=== PATIENT | female | born 1955 | race Caucasian/White ===

== ENCOUNTER 2018-01-10 07:09 | Outpatient (CLI) | payer OTHER, SELFPAY ==
[2018-01-10 08:39] LABS: Cholesterol 153 mg/dL (50-200); Glucose 101 mg/dL (70-100); HDL Cholesterol 65 mg/dL (40-60); LDL CHOLESTEROL 80 mg/dL (<100); TSH 2.84 uIU/mL (0.358-3.74); Triglyceride 133 mg/dL (30-150)
== END 2018-01-10 07:29 ==
PROVIDERS: PCP Nurse Practitioner Family; Visit Provider Nurse Practitioner Family
DX: Z00.00 Encounter for general adult medical examination without abnormal findings (principal); F41.8 Other specified anxiety disorders; E66.9 Obesity, unspecified
CPT/HCPCS: 36415; 80061; 82947; 83721; 84443

== ENCOUNTER 2019-09-07 03:44 | Outpatient (CLI) | payer OTHER, SELFPAY ==
--- NOTE | 2019-09-07 15:47 | DI.RAD_ITS ---
EXAM: XR HIP LT COMPLETE AP PELVIS INDICATION: DEGENERATIVE JOINT DISEASE,OA.M19.90, LT SCIATICA. COMPARISON: CR from 12/22/2010 CR from 12/22/2010 TECHNIQUE: 2D digital imaging was performed. FINDINGS: There is a right hip prosthesis, not present on the previous examination. There has been interval pr ogression of degenerative changes in the left hip. There is now sever narrowing of the superior hip joint space, periarticular spurring and subchondral cyst formation. The SI joints are unremarkable. Severe degenerative changes are seen in the lower lumbar spine. IMPRESSION: Severe degenerative changes of the left hip. DATA REPOSITORY: RADIATION DOSE DELIVERED:
--- NOTE | 2019-09-07 15:48 | DI.RAD_ITS ---
EXAM: XR LUMBAR SPINE COMPLETE CLINICAL HISTORY: LT SCIATICA, M54.32, BACK PAIN. TECHNIQUE: 2D digital imaging was performed. COMPARISON: CR RIGHT HIP COMPLETE from 12/22/2010 FINDINGS: BONES: No fracture or destructive lesion. Vertebral bodies are maintained in height. DISKS: There is sever narrowing of the T11-12 disc space with periarticular spurring. The T12-L1 thr ough L3-L4 disk spaces are well maintained. At L4-5, there is severe narrowing, endplate osteophytes and sclerosis. There is moderate narrowing of the L5-S1 disc space. Facet degenerative changes are seen greatest at L4-5 and L5-S1. ALIGNMENT: There is a mild levoscoliosis secondary to asymmetric narrowing of the L4-5 disc space on the right. SOFT TISSUE: Normal bowel gas pattern. IMPRESSION: Degenerative disk changes, greatest at L4-5. DATA REPOSITORY: RADIATION DOSE DELIVERED:
== END 2019-09-07 04:04 ==
PROVIDERS: PCP Nurse Practitioner Family; Visit Provider Nurse Practitioner
DX: M54.42 Lumbago with sciatica, left side (principal); M16.12 Unilateral primary osteoarthritis, left hip; Z96.641 Presence of right artificial hip joint; M51.17 Intervertebral disc disorders with radiculopathy, lumbosacral region
CPT/HCPCS: 72110; 73502

== ENCOUNTER 2019-09-10 02:14 | Outpatient (CLI) | payer OTHER, SELFPAY ==
[2019-09-10 07:24] LABS: HCT 42.1 % (36.0-46.0); HGB 13.6 g/dL (12.0-15.5); Mean Corp. HGB Concentration 32.3 g/dL (32.0-36.0); Mean Corpuscular Hemoglobin 26.7 pg (27.0-33.0); Mean Corpuscular Volume 82.7 fL (80-95); Mean Platelet Volume 10.5 fL (8.0-11.0); Platelet Count 275 x1000/uL (130-400); RBC 5.09 m/cumm (4.00-5.20); RBC Distribution Width 15.2 % (11.7-14.6); White Blood Cell Count 6.44 k/cumm (4.4-10.8)
[2019-09-10 08:24] LABS: ALT 26 U/L (14-59); AST 19 U/L (15-37); Albumin 3.4 g/dL (3.4-5.0); Alkaline Phosphatase 77 U/L (46-116); Anion Gap 9.3 mmol/L (3-11); BUN 12 mg/dL (7-18); Bilirubin, Total 0.4 mg/dL (0.2-1.0); CO2 25.7 mmol/L (21.0-32.0); CREATININE 0.87 mg/dL (0.55-1.02); Calcium 8.5 mg/dL (8.5-10.1); Chloride 104 mmol/L (98-107); Glucose 100 mg/dL (74-106); Potassium 4.6 mmol/L (3.5-5.1); Sodium 139 mmol/L (136-145); TSH (W/Ref FT4) 2.48 uIU/mL (0.36-3.74); Total Protein 6.7 g/dL (6.4-8.2)
[2019-09-10 11:36] LABS: Calculated LDL 72 mg/dL (<100); Cholesterol 160 mg/dL (<200); HDL Cholesterol 64 mg/dL (40-60); Triglyceride 124 mg/dL (<150); Vitamin B12 335 pg/mL (193-986)
== END 2019-09-10 02:34 ==
PROVIDERS: PCP Nurse Practitioner Family; Visit Provider Nurse Practitioner
DX: E55.9 Vitamin D deficiency, unspecified (principal); R53.83 Other fatigue; Z13.220 Encounter for screening for lipoid disorders
CPT/HCPCS: 36415; 80053; 80061; 82306; 85027; 82607; 84443

== ENCOUNTER 2019-12-07 11:09 | Outpatient (CLI) | payer OTHER, SELFPAY ==
--- NOTE | 2019-12-07 11:00 | DI.RAD_ITS ---
EXAM: XR PELVIS AP INDICATION: left hip DJD. COMPARISON: CR XR HIP LT COMPLETE AP PELVIS from 09/07/2019 TECHNIQUE: 2D digital imaging was performed. FINDINGS: A right hip prosthesis is again noted. There are again noted to be severe degenerative changes of th e superior left hip joint space. There is acetabular spurring and spurring from the femoral head. DATA REPOSITORY: RADIATION DOSE DELIVERED:
== END 2019-12-07 11:29 ==
PROVIDERS: PCP Nurse Practitioner; Referring Provider Nurse Practitioner; Visit Provider Physician Assistant
DX: M16.12 Unilateral primary osteoarthritis, left hip (principal); Z96.641 Presence of right artificial hip joint
CPT/HCPCS: 72170

== ENCOUNTER 2020-01-11 02:15 | Outpatient (CLI) | payer OTHER, SELFPAY ==
[2020-01-11 10:16] LABS: HCT 41.5 % (36.0-46.0); HGB 13.2 g/dL (11.2-15.7); MCH 27.1 pg (27.0-33.0); MCHC 31.8 % (32.0-36.0); MCV 85.2 fL (80-95); MPV 10.1 fL (8.0-11.0); Platelet Count 232 10^3/uL (130-400); RBC 4.87 10^6/uL (3.93-5.22); RDW 14.8 % (11.7-14.6); RDW-SD 46.4 fL; WBC 5.83 10^3/uL (4.4-10.8)
[2020-01-11 11:17] LABS: Anion Gap 8.6 mmol/L (3-11); BUN 13 mg/dL (7-18); CO2 27.4 mmol/L (21.0-32.0); CREATININE 0.78 mg/dL (0.55-1.02); Calcium 8.7 mg/dL (8.5-10.1); Chloride 104 mmol/L (98-107); Glucose 97 mg/dL (74-106); Potassium 4.4 mmol/L (3.5-5.1); Sodium 140 mmol/L (136-145)
[2020-01-12 14:58] LABS: COVID-19 RT-PCR Result NEGATIVE (Negative)
== END 2020-01-11 02:35 ==
PROVIDERS: PCP Nurse Practitioner; Visit Provider Student in an Organized Health Care Education/Training Program
DX: M16.12 Unilateral primary osteoarthritis, left hip (principal); Z01.818 Encounter for other preprocedural examination; Z11.59 Encounter for screening for other viral diseases; Z67.10 Type A blood, Rh positive
CPT/HCPCS: 80048; 85027; 86850; 86900; 86901; U0003

== ENCOUNTER 2020-01-16 07:37 | Observation (INO) | payer OTHER, SELFPAY ==
[2020-01-16] VITALS (9 sets, daily range): BP systolic 108–136; BP diastolic 47–105; PULSE 62–86; RESP 12–18; TEMP 36.1–36.7; O2SAT 96–99
[2020-01-16] MEDS: Lactated Ringers 1,000 ML 80 ML IV (08:02)
[2020-01-16] MEDS: Celecoxib 200 MG CAP 400 MG PO (08:02)
[2020-01-16] MEDS: Acetaminophen 500 MG TAB 1000 MG PO ×2 (08:02→16:06)
--- NOTE | 2020-01-16 10:30 | DI.RAD_ITS ---
EXAM: XR HIP LT IN OR CLINICAL HISTORY: OSTEOARTHRITIS LEFT HIP. TECHNIQUE: 2D and realtime digital imaging was performed. COMPARISON: No exams were available for comparison FINDINGS: Fluoroscopy was provided in the OR for Dr. Carr. Hard copy images show placement of a left hip prosthesis. Please see procedure note for details. Fluoro time: 35.2 seconds RADIATION DOSE DELIVERED:
[2020-01-16] MEDS: ceFAZolin 3,000 MG in Normal Saline 100 ML 200 MG IVPB (12:02)
[2020-01-16] MEDS: Bupivacaine 0.25% Pres-Free 30 ML VIAL (13:33)
[2020-01-16] MEDS: Ketorolac 30 MG/ML VIAL (13:33)
--- NOTE | 2020-01-16 15:19 | PT.INIE ---
Date of service: 01/16/20 Time of Service: 15:19 PT Notes Visit Reasons: TOTAL HIP Physical Therapy Inpatient Initial Evaluation Date: 01/16/2020 Referring Doctor: SANTIAGO Johnson PT Orders: PT CONSULT: Status post Ortho surgery Precautions: Fall. Standard. WBAT on left LE. Patient Profile/Admitting Diagnosis: Adilene is a 64-year-old female with primary unilateral osteoarthritis of the left hip and is status post left total hip arthroplasty on postoperative day 0. PMHX: Surgical History (Updated 01/11/20 @ 18:20 by SANTIAGO Werner) H/O tubal ligation History of total right hip replacement (07/27/11) [facility] Social History/Home Situation: Lives with in a private home with 2 steps to enter with a rail on 1 side. Daughter will be home as well to help take care of her mother as she recovers. 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 Independent with all aspects of ADLs prior to surgery. Equipment Owned/DME: Has front wheeled walker that has been adjusted properly to her height today. Subjective: Reports some mild burning sensation in the left hip at rest that subsided with activity. Hopeful to be going home today if safe to do so. Reported mild lightheadedness that she has not had anything to eat since last night. Objective: General Observation: Supine in bed. IV in the right UE. TEDS on B legs. Antithromboembolic devices on both legs. Mepilex Ag over surgical incision. Mental Status: Alert and oriented x4 Pain: 1/10 in the left hip at rest and 3/10 with ambulation Vital signs: Within normal limits as by nurse [place] immediately prior to PT visit ROM: Right Upper Extremity: Shoulder Flexion WFL. Shoulder abduction WFL. Elbow flexion WFL. Wrist flexion WFL. Opening and closing of hand WFL. Left Upper Extremity: Shoulder Flexion WFL. Shoulder abduction WFL. Elbow flexion WFL. Wrist flexion WFL. Opening and closing of hand WFL. Right Lower Extremity: Hip flexion WFL. Hip abduction WFL. Knee flexion WFL. Ankle dorsiflexion WFL. Ankle plantarflexion WFL. Left Lower Extremity: Hip flexion WFL. Hip abduction WFL. Knee flexion WFL. Ankle dorsiflexion WFL. Ankle plantarflexion WFL. Strength: Right Upper Extremity: Shoulder flexors 5/5. Shoulder abductors 5/5. Elbow flexors 5/5. Elbow extensors 5/5. Pediatric Physician Assistant strong. Left Upper Extremity: Shoulder flexors 5/5. Shoulder abductors 5/5. Elbow flexors 5/5. Elbow extensors 5/5. Pediatric Physician Assistant strong. Right Lower Extremity: Hip flexors 5/5. Hip abductors 5/5. Knee flexors 5/5. Knee extensors 5/5. Ankle dorsiflexors 5/5. Ankle plantarflexors 5/5. Left Lower Extremity:Hip flexors 4/5. Hip abductors 4/5. Knee flexors 4/5. Knee extensors 4/5. Ankle dorsiflexors 5/5. Ankle plantarflexors 5/5. Sensation: Intact as to pain and pressure on bilateral lower extremities. Bed Mobility/Transfers: Supine to sit contact-guard assist Sit to stand contact-guard assist Stand to sit contact-guard assist Bed to chair contact-guard assist Chair to bed contact-guard assist Gait: Adilene tolerated 120 feet x 2 level surface ambulation using front wheeled walker with contact-guard assist and step through gait pattern. Decreased xuan. Reported mild burning sensation and in the left hip that subsided later on in the activity. Balance: Static Sitting: Normal Dynamic Sitting: Normal Static Standing: Fair Dynamic Standing: Fair Special Tests: Mobility Limitations Standardized Measure [facility] 6 clicks Basic Mobility Inpatient Short Form: Raw Score: 18 CMS Score: 47% deficit Informed Consent/Education: Patient instructed in purpose of PT consult and plan of care. Assessment: Adilene demonstrates functional mobility decline requiring the use of a front wheeled walker for all mobility ADL performance, generalized weakness in the left hip muscles, instability with gait, decreased activity tolerance, and increased fall risk due to postoperative status. Adilene is a 64-year-old female with primary unilateral osteoarthritis of the left hip and is status post left total hip arthroplasty on postoperative day 0. Patient presents with clinical signs and symptoms consistent with current/admitting diagnoses that have resulted to mobility limitations, gait instability, generalized weakness, and impairment of motor control as demonstrated by the following impairment level findings: 1. Decreased strength to left hip major muscle groups 2. Impaired standing balance 3. Impaired activity tolerance Impairments are contributing to the following functional limitations: 1. Dependent bed mobility skills 2. Increased dependence with transfers 3. Inability to safely ambulate without assistive device 4. Increase completion time for mobility ADL performance 5. Increased fall risk 6. Inability to negotiate steps alone safely Patient is assessed as a 64318 moderate complexity based on the following: History: 64-year-old female with impairment level findings, functional limitations, and past medical history as indicated above Examination: Demonstrable impairment in strength, balance, and mobility level with underlying impairments and functional limitations as documented above Presentation:Evolving Decision Makin moderate complexity Goals: N/A. PT eval and 1 treatment session only for HEP education and functional mobility retraining use of front wheeled walker to reduce fall risk at home. Plan of Care/Treatment Plan: N/A. PT eval and 1 treatment session only for HEP education and functional mobility retraining use of front wheeled walker to reduce fall risk at home. Front wheeled walker has also been assembled and fitted according to patient's height for maximum stability. DISCHARGE RECOMMENDATIONS: Home when medically cleared by orthopedic surgeon. Outpatient physical therapy services in order to regain prior level of independence and facilitate return to vocational activities. TREATMENT CODE/TIME: 45764 x 25 minutes, 44309 x 31 minutes beginning at 1519 p.m. Thank you for the opportunity to participate in the care of this patient. Alyson Pinon PT, DPT, CLT [facility] [place], [place]
--- NOTE | 2020-01-16 16:38 | DSE_ITS ---
Date of service: 01/16/20 Time of Service: 16:39 DS: Diagnosis Discharge Diagnosis (1) Primary osteoarthritis of left hip: Status: Acute Discharge Plan Disposition Patient Disposition: HOME Condition: Stable Discharge Details Reason For Visit: TOTAL HIP Admit Date/Time: 01/16/20 07:37 Admit Provider: Richard Carr Attending Provider: Richard Carr Primary Care Provider: Chelsey Parry Hospital Course Hospital Course: Patient was admitted to the medical/surgical floor following the procedure. The surgery was tolerated well without any notable medical, surgical, or anesthetic complications. Mobilization began postoperatively. She was voiding spontaneously. Vitals were stable. Physical therapy worked with the patient and was cleared for discharge home. No acute medical issues. Pain was controlled on oral regimen. Home Meds and New Rx's Prescriptions: New celecoxib [Celebrex] 200 mg capsule 200 mg PO BID Qty: 60 RF: 0 aspirin 81 mg tablet,delayed release (DR/EC) 81 mg PO BID Qty: 60 RF: 0 acetaminophen [Tylenol Extra Strength] 500 mg tablet 500 mg PO Q6H PRNQty: 90 RF: 0 oxycodone 5 mg tablet 5 mg PO Q4H PRNQty: 18 RF: 0 Continued multivitamin [Daily Multi-Vitamin] 1 EACH tablet 1 ea PO DAILY RF: 0 calcium carbonate [Calcium 500] 500 MG tablet 500 mg PO DAILY Qty: 4 RF: 0 ascorbic acid (vitamin C) [Vitamin C] 500 MG capsule, extended release 500 mg PO DAILY RF: 0 omeprazole 20 MG capsule,delayed release(DR/EC) 20 mg PO DAILY Qty: 90 RF: 4 zolpidem 5 MG tablet 5 mg PO HS Qty: 90 RF: 4 cholecalciferol (vitamin D3) [Vitamin D3] 50 mcg (2,000 unit) capsule 4,000 unit PO DAILY RF: 0 escitalopram oxalate 20 MG tablet 20 mg PO HS RF: 0 Discontinued celecoxib [Celebrex] 200 mg capsule 200 mg PO BID PRN (Reason: pain) Qty: 60 RF: 3 acetaminophen [Tylenol Extra Strength] 500 mg Capsule 1,000 mg PO PRN PRNRF: 0 Discharge Instructions Additional Instructions: Total Hip Discharge Instructions Activity: The most important activity is to walk. You should try to take short walks a few times a day. You have no restrictions on movement or positioning, but do not try to force what you do. You will find some stiffness and weakness with hip flexion (lifting your knee). Do not try to strengthen this too early, continue to practice walking and stairs and this will come. - Outpatient physical therapy can be helpful to help return you to a normal gait and improve your flexibility and strength. This can start around 2 weeks. For some patients, it?s not necessary. Usually this is determined at the time of discharge or at the first post-operative visit. - You should wear the JOEY hose on both legs for 2 weeks. Dressing: Keep the surgical dressing in place for at least one week. After the first week it may be removed and replace with light gauze and tape or nothing. It may get wet after 3 days but avoid soaking the dressing. If it gets wet, just lightly pat dry. It is important to always keep some gauze between skin folds, especially when you are sitting. Spend some time with the wound exposed when you are lying flat as the incision does wrinkle onto itself. Medications: - You should take Tylenol and an anti-inflammatory Celebrex as your primary pain control medications - You have been prescribed a stronger pain medication Oxycodone for breakthrough pain, take as needed as prescribed. - Continue with your Omeprazole, a stomach acid reduction agent to help reduce stomach acid and reflux. - You will be taking Aspirin 81mg twice a day for DVT prevention unless instructed otherwise. - If you have constipation you should take Colace or Miralax (both [id number]). It takes most people 3-4 days to have a bowel movement. Follow-up: 2 weeks If you have any acute concerns or questions, please do not hesitate to contact the office at [phone]. You may contact Dr. Carr with any questions after hours through the hospital at [phone] or on his cell phone at [phone]. Referrals: Richard Carr MD [ [facility] STAFF PHYSICIAN] - Activity:: Activity as Tolerated Equipment/Supplies:: Walker Diet:: As Tolerated Discharge Orders Discharge Orders: Discharge Order (Routine); Ordered 01/16/20 Ordered By: Richard Carr DS: Summary Status at Discharge Functional status at discharge: uses cane/walker Overall status at discharge: patient is progressing back to baseline Mental Status: mental status grossly normal Speech and Movement: speech and movement normal Mood: congruent mood Affect: normal affect Exam Psych Mental Status: mental status grossly normal Speech and Movement: speech and movement normal Mood: congruent mood Affect: normal affect DS: Data Vitals/I&O Vitals and I&O: Vital Signs Temperature 36.1 C L 01/16/20 15:16 Pulse 62 01/16/20 15:16 Pulse Rhythm Regular 01/16/20 15:16 Respiratory Rate 18 01/16/20 15:16 Respiratory Effort Non-Labored 01/16/20 15:16 Respiratory Depth Normal 01/16/20 15:16 Respiratory Pattern Normal 01/16/20 15:16 Blood Pressure 129/67 01/16/20 15:16 Pulse Oximetry 99 01/16/20 15:16 Respiratory End-tidal CO2 34 01/16/20 14:48 Oxygen Delivery Method Room Air 01/16/20 15:16 Oxygen Flow Rate 0 01/16/20 15:16 Pain Level 2 01/16/20 15:16 Intake & Output 01/15/20 01/16/20 01/16/20 23:59 11:59 23:59 Intake Total 1070 / 1070 Output Total 300 / 300 Balance 770 / 770 Weight 114.6 kg Intake: IV 1070 / 1070 Output: Estimated Blood Loss 300 / 300 Other: Emesis Description None PFSH Medical History Anxiety Depression Heartburn Surgical History H/O tubal ligation History of total right hip replacement (07/27/11) [facility] Social History Smoking/Tobacco Use Status: Former Tobacco Use Drug use: Occasionally
--- NOTE | 2020-01-16 17:09 | W.PM.OP ---
Date of service: 01/16/20 Time of Service: 14:09 Operative Note Operative Note DATE OF PROCEDURE: 01/16/20 PRE-OP DIAGNOSIS: Left Hip Osteoarthritis POST-OP DIAGNOSIS: same PROCEDURE: Left Anterior Total Hip Arthroplasty SURGEON: Richard Carr HAND WRAPPER OPERATOR: Lashaun Gonsales ANESTHESIA: spinal ESTIMATED BLOOD LOSS: 300 PATHOLOGY: none sent TOURNIQUET TIME: 0 COMPLICATIONS: None Patient was transported to: PACU Patient's condition: stable Implants: 1. Depuy [place] Acetabular Component, 48mm 2. Depuy Acetabular Liner, 26b21re 3. Depuy Corail Standard Collared Femoral Stem, Size 11 4. Depuy Altrx Ceramic Femoral Head, Size 32+5mm Indications: I have seen Adilene in clinic for symptoms of hip arthritis, confirmed with radiographic findings. She has exhausted nonoperative methods and was having significant limitations in daily function and desired better function and less pain. I discussed the technical details of a hip replacement. I explained the risks of the procedure to include, but not limited to, bleeding, infection, pain, stiffness, fracture, damage to nerves and vessels, damage to muscles and tendons, loosening, instability, leg length inequality, need for repeat procedure, blood clot and cardiopulmonary demise. Despite these risks, Adilene elected to proceed. Findings: There was significant signs of arthritis throughout the hip. Procedure Description: Adilene was greeted in the preoperative holding area where the correct side was identified and marked. The consent was reviewed with the patient and signed. The history and physical was updated. All questions were answered. She was taken back to the operating room. A spinal anesthestic was then administered. The patient was placed into the supine position on the operating room table. The patient was then positioned onto the ARCH table. Both feet were wrapped with Webrill cotton wrap along with Coban. The feet were placed in specialized boots for the HANA table, well seated within the boot and secured. SCDs were applied. The patient was then slid down onto a peroneal post. A preoperative AP pelvis was obtained to serve as a reference for determining leg lengths. Prophylactic antibiotics in the form of Cefazolin were administered. 1g of Tranxemic Acid was given intravenously within 30 minutes of incision. The left leg was then prepped with Chloraprep and draped in a standard fashion. A second prep with Chloraprep was performed prior to placement of a shower-curtain type drape with Iodine impregnated skin protection. A timeout to confirm correct identity, side and site, procedure, allergies, anesthesia, and medical concerns was performed. An obliquely oriented incision was made starting lateral to the ASIS and running distal over the Tensor Fascia Shanna (TFL) muscle belly toward the fibular head, approximately 10cm. The skin and soft tissue was dissected sharply, through Hanh?s fascia, and to the fascia of the TFL. With the fascia and superior border of the IT band identified, the fascia was incised with a new knife just above any perforators from the IT band. The TFL muscle belly was bluntly dissected away from the fascia and moved laterally. The fat between TFL and rectus was identified to ensure the dissection was not within the TFL. Blunt dissection created space between abductors and the capsule and retractor was placed over the lateral femoral neck. The fibers of the rectus femoris tendon were identified and these were freed from the anterior capsule. A second cobra retractor was placed around the medial femoral neck. The TFL was further retracted laterally to show the deep fascia. Careful dissection through this layer identified three main crossing vessels of the lateral femoral circumflex. These were cauterized in multiple locations and then cut without any noticeable bleeding. The TFL was further released bluntly from the deep fascia to expose anterior hip capsule and fat The Akil orthopaedic retractor was then placed beneath the TFL and against sartorius and medial soft tissues to protect and retract the soft tissues. A T-capsulotomy was then performed starting at the superior lateral acetabulum and moving distally to the intertrochanteric ridge. These capsular flaps were tagged with a No. 1 Ethibond and elevated from within. The capsular flaps were released to the shoulder of the lateral neck and to the lesser trochanter to give excellent visualization of the proximal femur. A neck osteotomy was performed using an oscillating saw based on preoperative templates. This cut started in the shoulder and of the lateral neck and exited medially. The saw was at all times directed medially to avoid injury to the greater trochanter. 6cm of traction was applied to the leg and the osteotomy opened. The femoral head was removed with a corkscrew, making sure to protect the TFL on its exit. This was measured on the back table to determing the starting reamer size. Portions of the rectus obscuring visualization were minimally elevated off the superior acetabulum. An anterior retractor was placed over the anterior wall between capsule and labrum and attached to the Gripper retraction system. A posterior retractor was placed similarly. This provided excellent visualization. The contents of the cotyloid fossa were removed with electrocautery and the labrum was removed with a knife. There was a notable floor osteophyte. There was significant chondromalacia of the superior acetabulum. Acetabular reaming began with a 44mm reamer. This first reaming was directed anterior to posterior and medial to get down to the true floor. This was inspected and reamed until the true floor was reached. The anterior retractor was then released and entry and exit was provided by traction on the capsular flaps. I then reamed sequentially up to a 48mm reamer where good fit was obtained. The larger reamers were oriented based on anatomical reference of the anterior and lateral lee to ensure proper abduction and anteversion. Positioning and size was confirmed with the fluoroscopy. A 48mm Depuy [place] acetabular component was selected. The acetabulum was reamed around the periphery with the selected acetabular size to prevent a rim fit. The deep tissues were irrigated. The acetabular component was then impacted in a position of about 40-45 degrees of abduction and 15-20 degrees of anteversion, using the patient?s anatomy as the ultimate landmark. Fluoroscopy was used to confirm this. There was excellent airport sales agent of the acetabular component and the inserting handle was removed. The acetabular liner, Depuy [id number] polyethylene liner, was inserted and lined up with the tines of the acetabular component. There was no soft tissue interposition. The liner was then impacted into position and confirmed to be well-seated. A portion of the mary-articular cocktail was then injected around the acetabulum into the capsule and periosteum. This cocktail consisted of 50cc of 0.25% Bupivicaine and 20cc of Exparel, expanded to a total of 120cc. Traction was released from the femur. The leg was rotated to 120 degrees. Any remaining medial capsule was released until the lesser trochanter was easily palpable. A Estrada retractor was placed medially. The lateral capsule was further released into the shoulder to allow access to the greater trochanter. A Estrada retractor was placed over the greater trochanter which allowed the trochanter to flip in front of the capsule for excellent exposure. The leg was brought down into maximal extension and 20 degrees of adduction while ensuring there was no impingement on the acetabulum. Any remnant capsule within the trochanter was released. Piriformis and obturator externis were identified and protected. There was excellent access to the proximal femur. The lateral neck remnant was removed with a rongeur. A blunt canal probe was used to identify the canal and trajectory for later broaching. A box osteotome initiated the broach course. A small curved rasp and a curved curette were used to work laterally. Broaching then began with a size 8 Corail broach. This was inserted manually around the trochanter and into the canal before mallet blows. The broach was seated to a few millimeters below the cut level based on the neck cut and the preoperative template. Sequential broaching was continued with the Notizza pneumatic broaching device until a tight fit was obtained with good rotational control of the femur. A trial standard neck was inserted along with a +5 trial head. The leg was brought out of extension and adduction and then reduced with traction and internal rotation. The leg was stable anteriorly in a position of 30 degrees of extension and 90 degrees of external rotation. Fluoroscopy was used to ensure there was no fracture and the stem was seated well. Leg lengths were checked with an AP pelvis and pelvic reference points. Typesafe navigation system was used to confirm appropriate positioning and leg length and offset. Once content with the desired offset and leg lengths, the leg was brought back into extension, external rotation and adduction. The periosteum and surrounding tissue was injected with remaining portion of the mary-articular cocktail. The proximal femur was irrigated as well as the deep tissues. The Depuy Corail standard collared stem, size 11, was then manually inserted into the proximal femur making sure to control rotation. It was then malleted into position with light blows, giving breaks to allow bone expansion and decrease risk of fracture. The selected Depuy Altrx Ceramic Head, size 32+5mm, was then placed onto the clean and dry trunnion and secured with impaction onto the tapered fit. The leg was brought back out of extension and adduction and reduced with traction and internal rotation. Stability was confirmed with no shuck at 90 degrees of external rotation and 30 degrees of extension. No impingement through range of motion arc. Final x-ray images were obtained with fluoroscopy to confirm adequate positioning and no intraoperative fracture. The deep tissues were thoroughly irrigated with Irrisept chlorhexadine solution. The second dose of TXA 1g was administered intravenously.The capsule was then reapproximated with the previously placed Ethibond sutures. The TFL fascia was finally closed with a No. 2 Stratafix, barbed suture. Deep tissues were then reapproximated with 0 Vicryl and a running 2-0 Vicryl. The skin was closed with a running 4-0 Monocryl in a subcuticular fashion. This was reinforced with skin glue. A Mepilex silver dressing was applied. At the end of the case, all counts were correct. Adilene was transferred to the hospital bed without difficulty and suffering no apparent complication. Adilene has a good prognosis. Physical therapy will start today and without restrictions, weight-bearing as tolerated. Aspirin 81mg BID will be used for DVT prophylaxis.
== END 2020-01-16 18:30 | disposition home or self-care (01) ==
LOC: PDS 14:38 → MS 14:38
PROVIDERS: Admitting Provider Student in an Organized Health Care Education/Training Program; PCP Nurse Practitioner; Visit Provider Student in an Organized Health Care Education/Training Program
PROC: (CPT 27130; principal; 2020-01-16 10:15)
DX: M16.12 Unilateral primary osteoarthritis, left hip (principal); Z87.891 Personal history of nicotine dependence; K21.9 Gastro-esophageal reflux disease without esophagitis; F41.9 Anxiety disorder, unspecified; F32.9 Major depressive disorder, single episode, unspecified
CPT/HCPCS: 27130; 97162; 97530; NC; 73501; G0378; J0690; J1885; J2250; J2405

== ENCOUNTER 2020-01-31 10:21 | Outpatient (CLI) | payer OTHER, SELFPAY ==
--- NOTE | 2020-01-31 10:38 | DI.RAD_ITS ---
EXAM: XR HIP LT COMPLETE AP PELVIS CLINICAL HISTORY: 1ST POST OP. TECHNIQUE: 2D digital imaging was performed. COMPARISON: CR XR HIP LT COMPLETE AP PELVIS from 09/07/2019 FINDINGS: BONES: There are stable post operative changes present. No fracture or dislocation. JOINTS: The joint spaces are well maintained. No joint effusion is present. SOFT TISSUE: Normal. IMPRESSION: Stable postoperative changes. DATA REPOSITORY: RADIATION DOSE DELIVERED:
== END 2020-01-31 10:41 ==
PROVIDERS: PCP Nurse Practitioner; Referring Provider Nurse Practitioner; Visit Provider Student in an Organized Health Care Education/Training Program
DX: Z96.642 Presence of left artificial hip joint (principal)
CPT/HCPCS: 73502

== ENCOUNTER 2020-09-22 16:57 | Outpatient (REF) | payer OTHER, SELFPAY ==
[2020-09-22 20:45] LABS: Vitamin D 25 Total 65.6 ng/mL (30-100)
[2020-09-22 20:48] LABS: ALT 97 U/L (14-59); AST 55 U/L (15-37); Albumin 3.5 g/dL (3.4-5.0); Alkaline Phosphatase 90 U/L (46-116); Anion Gap 10.9 mmol/L (3-11); BUN 13 mg/dL (7-18); Bilirubin, Total 0.4 mg/dL (0.2-1.0); CO2 25.1 mmol/L (21.0-32.0); CREATININE 0.8 mg/dL (0.55-1.02); Calcium 9.2 mg/dL (8.5-10.1); Chloride 104 mmol/L (98-107); Glucose 93 mg/dL (74-106); Sodium 140 mmol/L (136-145); Total Protein 7.1 g/dL (6.4-8.2); Vitamin B12 473 pg/mL (193-986)
== END 2020-09-22 16:58 | disposition home or self-care (01) ==
LOC: NCHCN 16:57
PROVIDERS: PCP Nurse Practitioner; Visit Provider Nurse Practitioner
DX: E55.9 Vitamin D deficiency, unspecified (principal)
CPT/HCPCS: 80053; 82306; 82607

== ENCOUNTER 2021-01-19 15:05 | Outpatient (CLI) | payer OTHER, SELFPAY ==
--- NOTE | 2021-01-19 14:58 | DI.RAD_ITS ---
Exam(s) XR HIP LT AP LAT ONLY EXAM: XR HIP LT AP LAT ONLY CLINICAL HISTORY: ANNUAL F/U R CAROLYN. TECHNIQUE: 2D digital imaging was performed. COMPARISON: CR XR HIP LT COMPLETE AP PELVIS from 01/31/2020 FINDINGS: Continued satisfactory position alignment of the components of the left hip prosthesis. Fracture or loosening evident. No radiographic evidence of osteomyelitis IMPRESSION: DATA REPOSITORY: RADIATION DOSE DELIVERED:
== END 2021-01-19 15:06 | disposition home or self-care (01) ==
LOC: DIORS 15:05
PROVIDERS: PCP Nurse Practitioner; Referring Provider Nurse Practitioner; Visit Provider Student in an Organized Health Care Education/Training Program
DX: Z96.642 Presence of left artificial hip joint (principal); Z47.1 Aftercare following joint replacement surgery
CPT/HCPCS: 73502

== ENCOUNTER 2022-04-12 12:33 | Outpatient (REF) | payer OTHER, SELFPAY ==
[2022-04-12 15:10] LABS: Abs Immature Grans 0.03 10^3/uL (0.0-0.06); Absolute Basophil Count 0.04 10^3/uL (0.0-0.2); Absolute Eosinophil Count 0.16 10^3/uL (0.0-0.7); Absolute Lymphocyte Count 1.89 10^3/uL (1.2-3.4); Absolute Monocyte Count 0.63 10^3/uL (0.1-0.8); Absolute Neutrophil Count 4.82 10^3/uL (1.2-6.7); Basophils % 0.5; Eosinophils % 2.1; HCT 43.9 % (36.0-46.0); Immature Grans % 0.4; MCH 27.6 pg (27.0-33.0); MCHC 31.9 % (32.0-36.0); MCV 87 fL (80-95); MPV 10.9 fL (8.0-11.0); Monocytes % 8.3; Neutrophils % 63.7; Platelet Count 244 10^3/uL (130-400); RBC 5.07 10^6/uL (3.93-5.22); RDW 13.9 % (11.7-14.6); RDW-SD 44.3 fL; WBC 7.57 10^3/uL (4.4-10.8)
[2022-04-12 15:39] LABS: ALT 90 U/L (14-59); AST 57 U/L (15-37); Albumin 3.7 g/dL (3.4-5.0); Alkaline Phosphatase 98 U/L (46-116); Anion Gap 9.3 mmol/L (3-11); BUN 10 mg/dL (7-18); Bilirubin, Total 0.3 mg/dL (0.2-1.0); CO2 28.7 mmol/L (21.0-32.0); CREATININE 0.8 mg/dL (0.55-1.02); Calcium 8.8 mg/dL (8.5-10.1); Calculated LDL 78 mg/dL (<100); Chloride 102 mmol/L (98-107); Cholesterol 166 mg/dL (<200); Estimated GFR 81.72 (mL/min/1.73m2); Glucose 87 mg/dL (74-106); HDL Cholesterol 59 mg/dL (40-60); Potassium 3.9 mmol/L (3.5-5.1); Sodium 140 mmol/L (136-145); TSH (W/Ref FT4) 1.77 uIU/mL (0.36-3.74); Triglyceride 145 mg/dL (<150)
[2022-04-12 16:48] LABS: Vitamin D 25 Total 62.3 ng/mL (30-100)
== END 2022-04-12 12:34 | disposition home or self-care (01) ==
LOC: NCHCN 12:33
PROVIDERS: PCP Nurse Practitioner; Visit Provider Nurse Practitioner Family
DX: F41.8 Other specified anxiety disorders (principal); G47.00 Insomnia, unspecified; E55.9 Vitamin D deficiency, unspecified; Z13.220 Encounter for screening for lipoid disorders; Z51.81 Encounter for therapeutic drug level monitoring
CPT/HCPCS: 80053; 80061; 82306; 84443; 85025

== ENCOUNTER 2022-05-14 00:32 | Outpatient (CLI) | payer OTHER, SELFPAY ==
--- NOTE | 2022-05-14 | DI.MAMMO_ITS ---
Exam(s) MAMMO SCREENING EXAM: MAMMO SCREENING CLINICAL HISTORY: SCREENING FOR BREAST CANCER Z12.39 TECHNIQUE: Mammograms were interpreted according to the usual protocol including computer analysis w [employer] CAD system, tomosynthesis and C-view imaging. COMPARISON: 2013 and 2014 FINDINGS: The breasts are composed of mainly fatty density , Breast Density category A. No suspicious masses or suspicious microcalcifications are seen. No skin thickening or abnormal axillary lymph nodes are seen. There has been no significant change from prior exams. IMPRESSION: BI-RADS Category 1, Negative mammogram Yearly screening mammography is recommended. Breast Density - Category A, fatty density. A negative radiographic report should not delay biopsy if a dominant or clinically suspicious mass is present. Up to ten percent of cancers are not identified on mammography. A negative report may reinforce clinical impression. Adenosis and dense breasts may obscure an underlying neoplasm. False positive reports average 6 to 10%. Patient will receive a letter notifying them of these results.
== END 2022-05-14 00:52 ==
LOC: DI 00:32
PROVIDERS: PCP Nurse Practitioner Family; Visit Provider Nurse Practitioner Family
DX: Z12.31 Encounter for screening mammogram for malignant neoplasm of breast (principal)
CPT/HCPCS: 77063; 77067

== ENCOUNTER 2022-08-31 14:58 | Outpatient (REF) | payer OTHER, SELFPAY ==
[2022-08-31 16:25] LABS: Iron 50 ug/dL (50-170); Total Iron Binding Capacity 427 ug/dL (250-450); Transferrin Sat 12 % (15-50)
[2022-08-31 16:28] LABS: ALT 61 U/L (14-59); AST 38 U/L (15-37); Albumin 3.7 g/dL (3.4-5.0); Alkaline Phosphatase 87 U/L (46-116); Anion Gap 10.4 mmol/L (3-11); BUN 10 mg/dL (7-18); Bilirubin, Total 0.3 mg/dL (0.2-1.0); CO2 25.6 mmol/L (21.0-32.0); CREATININE 0.8 mg/dL (0.55-1.02); Calcium 8.6 mg/dL (8.5-10.1); Chloride 104 mmol/L (98-107); Estimated GFR 81.21 (mL/min/1.73m2); Glucose 92 mg/dL (74-106); Potassium 4.1 mmol/L (3.5-5.1); Sodium 140 mmol/L (136-145); Total Protein 7.9 g/dL (6.4-8.2)
[2022-08-31 17:20] LABS: Vitamin B12 327 pg/mL (193-986)
[2022-08-31 18:52] LABS: GGT 36 U/L (5-55)
== END 2022-08-31 14:59 | disposition home or self-care (01) ==
LOC: NCHCN 14:58
PROVIDERS: PCP Nurse Practitioner Family; Visit Provider Nurse Practitioner Family
DX: Z00.00 Encounter for general adult medical examination without abnormal findings (principal); E55.9 Vitamin D deficiency, unspecified; R79.89 Other specified abnormal findings of blood chemistry; F41.8 Other specified anxiety disorders; Z79.899 Other long term (current) drug therapy; Z51.81 Encounter for therapeutic drug level monitoring
CPT/HCPCS: 80053; 82607; 82977; 83540; 83550

== ENCOUNTER 2023-04-20 16:03 | Outpatient (REF) | payer OTHER, SELFPAY ==
[2023-04-20 19:05] LABS: HCT 43.2 % (36.0-46.0); MCH 27.5 pg (27.0-33.0); MCHC 32.4 % (32.0-36.0); MCV 85 fL (80-95); MPV 10.9 fL (8.0-11.0); Platelet Count 218 10^3/uL (130-400); RBC 5.09 10^6/uL (3.93-5.22); RDW 13.2 % (11.7-14.6); RDW-SD 41.6 fL; WBC 6.65 10^3/uL (4.4-10.8)
[2023-04-20 19:21] LABS: Hemoglobin A1C 5.4 % (<5.7)
[2023-04-20 19:44] LABS: ALT 97 U/L (14-59); AST 56 U/L (15-37); Albumin 3.5 g/dL (3.4-5.0); Alkaline Phosphatase 90 U/L (46-116); Anion Gap 10.1 mmol/L (3-11); BUN 11 mg/dL (7-18); Bilirubin, Total 0.3 mg/dL (0.2-1.0); CO2 26.9 mmol/L (21.0-32.0); CREATININE 0.7 mg/dL (0.55-1.02); Calcium 8.9 mg/dL (8.5-10.1); Chloride 103 mmol/L (98-107); Estimated GFR 95.32 (mL/min/1.73m2); Ferritin 18 ng/mL (8-252); Glucose 98 mg/dL (74-106); Potassium 4.2 mmol/L (3.5-5.1); Sodium 140 mmol/L (136-145); TSH (W/Ref FT4) 1.25 uIU/mL (0.36-3.74); Total Protein 7.1 g/dL (6.4-8.2); Vitamin B12 532 pg/mL (193-986)
[2023-04-20 19:57] LABS: Iron 35 ug/dL (50-170); Total Iron Binding Capacity 435 ug/dL (250-450); Transferrin Sat 8 % (15-50)
[2023-04-20 20:20] LABS: Vitamin D 25 Total 63.5 ng/mL (30-100)
== END 2023-04-20 16:04 | disposition home or self-care (01) ==
LOC: NCHCN 16:03
PROVIDERS: PCP Nurse Practitioner Family; Visit Provider Nurse Practitioner Family
DX: R53.83 Other fatigue (principal)
CPT/HCPCS: 80053; 82306; 85027; 82607; 82728; 83036; 83540; 83550; 84443

== ENCOUNTER 2023-11-09 12:25 | Outpatient (REF) | payer OTHER, SELFPAY ==
[2023-11-09 19:12] LABS: Abs Immature Grans 0.02 10^3/uL (0.0-0.06); Absolute Basophil Count 0.05 10^3/uL (0.0-0.2); Absolute Eosinophil Count 0.21 10^3/uL (0.0-0.7); Absolute Lymphocyte Count 2.01 10^3/uL (1.2-3.4); Absolute Monocyte Count 0.65 10^3/uL (0.1-0.8); Absolute Neutrophil Count 3.36 10^3/uL (1.2-6.7); Basophils % 0.8 %; Eosinophils % 3.3 %; HCT 44.9 % (36.0-46.0); Immature Grans % 0.3 %; Lymphocytes % 31.9 %; MCH 29.1 pg (27.0-33.0); MCHC 33.4 % (32.0-36.0); MCV 87 fL (80-95); MPV 11.3 fL (8.0-11.0); Monocytes % 10.3 %; Neutrophils % 53.4 %; Platelet Count 226 10^3/uL (130-400); RBC 5.15 10^6/uL (3.93-5.22); RDW 13.8 % (11.7-14.6); RDW-SD 44.5 fL
[2023-11-09 19:47] LABS: Iron 105 ug/dL (50-170); Total Iron Binding Capacity 392 ug/dL (250-450); Transferrin Sat 27 % (15-50)
[2023-11-09 21:01] LABS: ALT 121 U/L (14-59); AST 65 U/L (15-37); Alkaline Phosphatase 95 U/L (46-116); BUN 9 mg/dL (7-18); Bilirubin, Total 0.38 mg/dL (0.2-1.0); CREATININE 0.8 mg/dL (0.55-1.02); Calcium 9.1 mg/dL (8.5-10.1); Chloride 103 mmol/L (98-107); Estimated GFR 80.71 (mL/min/1.73m2); Ferritin 52 ng/mL (8-252); Glucose 85 mg/dL (74-106); Potassium 4.3 mmol/L (3.5-5.1); Sodium 140 mmol/L (136-145); Total Protein 7.3 g/dL (6.4-8.2)
== END 2023-11-09 12:26 | disposition home or self-care (01) ==
LOC: NCHCN 12:25
PROVIDERS: PCP Nurse Practitioner Family; Visit Provider Nurse Practitioner Family
DX: R94.5 Abnormal results of liver function studies (principal); E61.1 Iron deficiency
CPT/HCPCS: 80053; 82728; 83540; 83550; 85025

== ENCOUNTER 2023-11-23 03:25 | Outpatient (CLI) | payer OTHER, SELFPAY ==
[2023-11-24 23:31] LABS: HBs Antibody, Quant <3.1 mIU/mL (See Note); Hepatitis B Surface Ab Negative (See Note)
[2023-11-25 00:10] LABS: Hep B Core Antibody Negative (Negative)
[2023-11-25 00:11] LABS: Hep A Total Ab w Rflx IgM Negative (Negative)
[2023-11-25 08:48] LABS: Hepatitis B Surface Ag Negative (Negative)
[2023-11-25 09:56] LABS: Hepatitis C Ab w Rflx HCV PCR Reactive (Negative)
[2023-11-28 14:41] LABS: HCV RNA Detection Quantitative 6060000 IU/mL (Undetected); HCV RNA Qualitative Detected (Undetected)
== END 2023-11-23 03:26 | disposition home or self-care (01) ==
LOC: LBO 03:25
PROVIDERS: PCP Nurse Practitioner Family; Visit Provider Nurse Practitioner Family
DX: R94.5 Abnormal results of liver function studies (principal)
CPT/HCPCS: 36415; 86704; 86706; 86709; 86803; 87340; 87522

== ENCOUNTER 2023-12-20 02:29 | Outpatient (CLI) | payer OTHER, SELFPAY ==
[2023-12-21 19:24] LABS: HIV-1/2 Ag & Ab Screen Negative (Negative)
[2023-12-23 15:37] LABS: ALT 94 U/L (7-45); ActiTest Grade A2; ActiTest Interpretation significant activity; ActiTest Score 0.55; Alpha-2-Macroglobulin 373 mg/dL (100 - 280); Apoliprotein A1 150 mg/dL (>=140); Bilirubin, Total <0.2 mg/dL (0.0 - 1.2); FibroTest Interpretation minimal fibrosis; FibroTest Score 0.33; FibroTest Stage F1-F2; GGT 27 U/L (5 - 36); Haptoglobin 152 mg/dL (30 - 200)
[2023-12-26 14:36] LABS: HCV Genotype 2 (Undetected)
== END 2023-12-20 02:30 | disposition home or self-care (01) ==
LOC: LBO 02:29
PROVIDERS: PCP Nurse Practitioner Family; Visit Provider Nurse Practitioner Family
DX: Z86.19 Personal history of other infectious and parasitic diseases (principal)
CPT/HCPCS: 36415; 81596; 87389; 87521

== ENCOUNTER 2024-02-09 01:55 | Outpatient (CLI) | payer OTHER, SELFPAY ==
[2024-02-09 11:59] LABS: HCT 45.7 % (36.0-46.0); HGB 15.1 g/dL (11.2-15.7); MCH 29.5 pg (27.0-33.0); MCV 89 fL (80-95); MPV 10.1 fL (8.0-11.0); Platelet Count 248 10^3/uL (130-400); RBC 5.12 10^6/uL (3.93-5.22); RDW 12.4 % (11.7-14.6); RDW-SD 40.9 fL; WBC 8.33 10^3/uL (4.4-10.8)
[2024-02-09 12:32] LABS: ALT 21 U/L (14-59); AST 16 U/L (15-37); Albumin 3.6 g/dL (3.4-5.0); Alkaline Phosphatase 110 U/L (46-116); Anion Gap 8.8 mmol/L (3-11); BUN 9 mg/dL (7-18); Bilirubin, Total 0.55 mg/dL (0.2-1.0); CO2 27.2 mmol/L (21.0-32.0); Calcium 9.1 mg/dL (8.5-10.1); Chloride 105 mmol/L (98-107); Estimated GFR 61.75 (mL/min/1.73m2); Glucose 92 mg/dL (74-106); Potassium 4.4 mmol/L (3.5-5.1); Sodium 141 mmol/L (136-145); Total Protein 7.6 g/dL (6.4-8.2)
== END 2024-02-09 01:56 | disposition home or self-care (01) ==
LOC: LBO 01:55
PROVIDERS: PCP Nurse Practitioner Family; Visit Provider Nurse Practitioner Family
DX: B19.20 Unspecified viral hepatitis C without hepatic coma (principal)
CPT/HCPCS: 36415; 80053; 85027

== ENCOUNTER 2024-02-15 13:02 | Outpatient (REF) | payer OTHER, SELFPAY ==
[2024-02-16 10:57] LABS: HCV RNA Qualitative Undetected (Undetected)
== END 2024-02-15 13:03 | disposition home or self-care (01) ==
LOC: NCHCN 13:02
PROVIDERS: PCP Nurse Practitioner Family; Visit Provider Nurse Practitioner Family
DX: B19.20 Unspecified viral hepatitis C without hepatic coma (principal)
CPT/HCPCS: 87522

== ENCOUNTER 2024-05-17 13:14 | Outpatient (REF) | payer OTHER, SELFPAY ==
[2024-05-18 12:01] LABS: HCV RNA Qualitative Undetected (Undetected)
== END 2024-05-17 13:15 | disposition home or self-care (01) ==
LOC: NCHCN 13:14
PROVIDERS: PCP Nurse Practitioner Family; Visit Provider Nurse Practitioner Family
DX: B19.20 Unspecified viral hepatitis C without hepatic coma (principal)
CPT/HCPCS: 87522

== ENCOUNTER 2024-06-06 03:27 | Outpatient (CLI) | payer OTHER, SELFPAY ==
--- NOTE | 2024-06-06 | DI.MAMMO_ITS ---
Exam(s) MAMMO SCREENING EXAM: MAMMO SCREENING CLINICAL HISTORY: Screening, Z12.31 TECHNIQUE: Bilateral full field digital CC and MLO mammographic images were obtained with 3D tomosyn thesis and utilizing computer aided detection (CAD). COMPARISON: Available for comparison. FINDINGS: Masses/Architectural Distortion: None seen. Microcalcifications: No suspicious pleomorphic-type are seen. Skin Thickening/Nipple Retraction: None. IMPRESSION: 1. No significant interval change with no specific features of malignancy noted. 2. Unless there is more urgent need, screening mammography is recommended, as per [employer] guidelines. BI-RADS Category 1 - Negative Breast Density - Category A - Almost entirely fatty Breast density category C or D implies that the patient has dense breast tissue. Dense breast tissue is very common and is not abnormal but dense breast tissue can make it harder to find cancer on a ma mmogram. Also, dense breast tissue may increase their breast cancer risk. This information about the result of the mammogram report was provided to the patient to raise their awareness. Use this report when you speak with the patient about their risks for breast cancer, which includes their family hist ory. At that time, you may recommend for more screening tests (Ultrasound or MRI) as they might be us eful based on their risk. A negative radiographic report should not delay biopsy if a dominant or clinically suspicious mass is present. Up to ten percent of cancers are not identified on mammography. A negative report may reinforce clinical impression. Adenosis and dense breasts may obscure an underlying neoplasm. False positive reports average 6 to 10%. Patient will receive a letter notifying them of these results.
== END 2024-06-06 03:47 ==
LOC: DI 03:27
PROVIDERS: PCP Nurse Practitioner Family; Visit Provider Nurse Practitioner Family
DX: Z12.31 Encounter for screening mammogram for malignant neoplasm of breast (principal); R92.313 Mammographic fatty tissue density, bilateral breasts
CPT/HCPCS: 77063; 77067

== ENCOUNTER 2024-12-31 14:56 | Outpatient (REF) | payer OTHER, SELFPAY ==
[2024-12-31 21:17] LABS: Hemoglobin A1C 4.8 % (<5.7)
[2024-12-31 21:47] LABS: ALT 19 U/L (14-59); AST 14 U/L (15-37); Albumin 3.9 g/dL (3.4-5.0); Alkaline Phosphatase 77 U/L (46-116); Anion Gap 11.0 mmol/L (3-11); BUN 9 mg/dL (7-18); Bilirubin, Total 0.3 mg/dL (0.2-1.0); CO2 24.0 mmol/L (21.0-32.0); Calcium 9.2 mg/dL (8.5-10.1); Calculated LDL 83 mg/dL (<100); Chloride 102 mmol/L (98-107); Cholesterol 173 mg/dL (<200); Estimated GFR 69.64 (mL/min/1.73m2); Glucose 92 mg/dL (74-106); HDL Cholesterol 58 mg/dL (>or=50); Potassium 4.3 mmol/L (3.5-5.1); Sodium 137 mmol/L (136-145); Total Protein 6.9 g/dL (6.4-8.2); Triglyceride 162 mg/dL (<150)
[2024-12-31 21:50] LABS: Vitamin B12 > 2000 pg/mL (193-986)
== END 2024-12-31 14:57 | disposition home or self-care (01) ==
LOC: NCHCN 14:56
PROVIDERS: PCP Nurse Practitioner Family; Visit Provider Nurse Practitioner Family
DX: Z00.00 Encounter for general adult medical examination without abnormal findings (principal)
CPT/HCPCS: 80053; 80061; 82607; 83036